=== PATIENT | male | born 1985 | race Caucasian/White ===

== ENCOUNTER → 2021-08-04 09:35 | Outpatient (BNVA) | payer MEDICAID, SELFPAY | PROVIDERS: PCP Internal Medicine; Visit Provider Surgery | DX: D17.9 Benign lipomatous neoplasm, unspecified (principal) | CPT/HCPCS: 99202 ==

== ENCOUNTER 2021-09-03 13:08 | Outpatient (REF) | payer MEDICAID, SELFPAY | END 2021-09-03 13:09 | disposition home or self-care (01) | LOC: HO.LAB 13:08 | PROVIDERS: PCP Internal Medicine; Visit Provider Surgery | DX: D17.24 Benign lipomatous neoplasm of skin and subcutaneous tissue of left leg (principal); D17.23 Benign lipomatous neoplasm of skin and subcutaneous tissue of right leg | CPT/HCPCS: 11402; 11403; 11404; 88304 ==

== ENCOUNTER 2023-12-08 12:05 | Outpatient (REF) | payer MEDICAID, SELFPAY ==
--- NOTE | ~2023-12-08 | XR_ITS ---
EXAMINATION: XR CHEST CLINICAL INFORMATION: Chest pain with deep breathing COMPARISON: 07/03/2016 TECHNIQUE: 2 views of the chest were obtained. FINDINGS: Lungs are grossly clear. Heart size normal with normal caliber and юлия vessels. There is minimal scarring related to the right minor fissure and some strand-like atelectasis at the left base in the retrocardiac space. These findings are new from the 2017 study but do appear likely chronic and not reflective of an active disease process. If symptoms warrant however, CT of the chest would be advised. XR/XR chest 2V IMPRESSION: Probable chronic changes in the right mid to lower lung and left base. No active disease. If clinically warranted, however, CT may be helpful for more sensitive evaluation. Electronically signed by: Hardeep Haines MD 12/08/2023 02:18 PM EDT
== END 2023-12-08 12:06 | disposition home or self-care (01) ==
LOC: HO.HHCX 12:05
PROVIDERS: Visit Provider Internal Medicine
DX: R07.1 Chest pain on breathing (principal)
CPT/HCPCS: 71046

== ENCOUNTER → 2023-12-29 10:01 | Outpatient (REF) | payer OTHER, SELFPAY ==
--- NOTE | 2023-12-29 10:04 | CA_ITS ---
Transthoracic Echocardiogram Patient (Last, First, Middle): Noel Rubio S Gender: Male Date of : 1985 Age: 38 Procedure Date: 12/29/2023 Procedure Type: Transthoracic Echocardiogram Location: OP Height: 172.72 cm Weight: 82.56 kg BSA: 1.96 m2 Heart Rate: bpm BP: 116 / 80 mmHg Claim Clerk: BJ Referring MD: Grabiel Hardwick MD Exterior Door Installer: Neno Valdez MD Symptoms: R07.1 CP ON BREATHING I10 HTN Study Quality: Fair ECG Rhythm: Sinus Conclusions: - Essentially normal study Findings Left Ventricle Normal left ventricular size, thickness, and systolic function. The visually estimated ejection fraction is between 65-70%. Spectral Doppler is indicative of a normal filling pattern. Right Ventricle Normal right ventricular cavity size and systolic function. Atria The left atrium is normal in size. There is no evidence of interatrial shunt. The right atrium was not well visualized. Aortic Valve The aortic valve structure and function is likely normal. There is no aortic valve stenosis. There is no aortic valve regurgitation. Mitral Valve Likely normal mitral valve structure and function. There is no mitral valve regurgitation. There is no mitral valve stenosis. Pulmonic Valve The pulmonic valve was not well visualized. Tricuspid Valve Likely normal tricuspid valve structure and function. Tricuspid regurgitation envelope is inadequate for calculation of right ventricular systolic pressure. Normal right atrial pressure. Great Vessels All visible segments of the aorta are normal in size. The pulmonary artery was not well visualized. Venous The inferior vena cava is normal in size and collapses greater than 50% with inspiration. Pericardium/Pleural There is no evidence of pericardial effusion. Prior Study Comparison No prior study available for comparison. Measurements 2D Linear Measurements IVSd: 0.99 0.6-0.9/0.6-1.0 cm LVIDd: 3.91 3.9-5.3/4.2-5.9 cm LVIDd Index: 1.99 2.4-3.2/2.2-3.1 cm/m2 LVIDs: 2.07 2.0-3.6 cm LVPWd: 0.76 0.7-1.1 cm LA Diam: 3.40 2.7-3.8/3.0-4.0 cm LAIDs Index: 1.73 1.5-2.3 cm/m2 LV Mass: 126.91 67-162/88-224 g LV Mass Index: 64.75 43-95/49-115 g/m2 LVOT Diam: 2.10 3.0+(-)1.3 cm 2D Systolic Function EF 4C: 67.40 >55% EF 2C: 71.80 >55% EF BiP: 69.00 >55% Mitral Valve MV Pk E: 1.02 MV PK A: 0.52 MV Decel Time: 164.00 E/A: 2.00 E'Lateral: 14.40 E'Medial: 9.79 E/E' Med: 10.40 E/E' Lat: 7.10 PHT: 48.00 MVA PHT: 4.58 Decel Cannon: 6.19 Aortic Valve AoV Pk Antoine: 1.05 AoV Mn Antoine: 0.77 AoV VTI: 0.20 AoV Pk Grad: 4.00 Aov Mn Grad: 3.00 FUNMI Cont.VTI: 3.51 LVOT LVOT Pk Antoine: 0.84 LVOT Mn Antoine: 0.54 LVOT VTI: 0.20 LVOT Pk Grad: 3.00 LVOT Mn Grad: 1.00 LVOT Diam: 2.10 LVOT Area: 3.46 Diastolic Function MV Pk E: 1.02 MV Pk A: 0.52 E/A: 2.00 E'Medial: 9.79 E/E' Med: 10.40 E' Laterial: 14.40 E/E' Lat: 7.10 Right Ventricle TAPSE (mm): 21.30 TVS' Antoine: 10.40 Tricuspid Valve RA Press: 3.00 Great Vessels Aorta Sinus of Valsalva: 3.12 2.0-3.5 cm Ao Asc: 2.70 2.1-3.4 cm Ao Arch: 2.50 Updated in Other Vendor System with Status of Final Neno Valdez MD electronically signed on 12/29/2023 5:23:56 PM with status of Final
== END ==
LOC: HO.CARD 10:01
PROVIDERS: PCP Internal Medicine; Visit Provider Internal Medicine
DX: R07.1 Chest pain on breathing (principal); I10 Essential (primary) hypertension
CPT/HCPCS: 93306

== ENCOUNTER → 2023-12-29 10:04 | Outpatient (BNV) | payer OTHER, SELFPAY | PROVIDERS: PCP Internal Medicine; Visit Provider Internal Medicine Cardiovascular Disease | DX: R07.1 Chest pain on breathing (principal) | CPT/HCPCS: 93306 ==

== ENCOUNTER 2024-12-13 10:56 | Outpatient (REF) | payer OTHER, SELFPAY ==
--- OUTSIDE RECORDS SUMMARY | 2024-12-08 09:30 | XMS_ITS | Encounter Summary ---
Author Organization [employer] Address [address] [facility] [address] [place] [address] Care Team Providers Care Poker Dealer Name Role Phone Grabiel Hardwick MD Primary Care Provider [phone] Reason for Visit * Reason Comments Immunizations Encounter Details Date Type Department Care Team (Latest Contact Info) Description 12/08/2024 10:30 AM EDT Clinical Support [facility] [address] [place] [address] Jinny Moore RN Encounter for immunization Social History Tobacco Use Types Packs/Day Years Used Date Smoking Tobacco: Never Passive Smoke Exposure: Never Smokeless Tobacco: Never Alcohol Use Standard Drinks/Week Comments Never 0 (1 standard drink = 0.6 oz pur e alcohol) Depression Answer Date Recorded Patient Health Questionnaire-9 Score 1 05/25/2024 Patient Health Questionnaire-9 Score 1 05/25/2024 Last PHQ-9: Questionnaire Data Not on file 0 05/25/2024 Housing Stability Answer Date Recorded What is your housing situation today? I have miranda jason 05/17/[address] you li ve. Do you have problems with any of the following? None of the above 05/17/2024 Food Insecurity Answer Date Recorded Within the past 12 months, y ou worried that your food would run out before you got money to buy more: Never True 05/17/2024 Within the past 12 months,th e food you bought just didn't last and you didn't have enough money to get more: Never True 10/2024 Transportation Answer Date Recorded In the past 12 months, has l ack of transportation kept you from medical appts, meetings, work or from getting things needed for daily living? No 05/17/2024 Utilities Answer Date Recorded In the past 12 months, has t he electric, gas, oil or water company threatened to shut off services in your home? No 05/17/2024 Depression Answer Date Recorded Patient Health Questionnaire-2 Score 0 05/25/2024 Internet Access Answer Date Recorded Internet Access Q1 Yes 05/17/2024 Internet Access Q2 Not on file 05/17/2024 Sex and Gender Information Value Date Recorded Sex Assigned at Male 12/08/2021 10:19 AM EDT Legal Sex Male 10:19 AM EDT Gender Identity Male 12/08/2021 10:19 AM EDT Sexual Orientation Straight 09/07/2024 7: 56 AM EDT documented as of this encounter Progress Notes * Jinny Moore RN - 12/08/2024 10:30 AM EDT S: Noel Rubio is here for Immunizations Preferred language for medical information: Azeri Noel Rubio denies feeling sick today. Upon review of the electronic health record there is no contraindication for receiving the Hepatitis B vaccine today. Penicillin g, Penicillin v, and Penicillins O: Hepatitis B 0.5ml, administered to left deltoid. Injection was tolerated well. No adverse reaction noted. A copy of the VIS informational sheet was provided and Noel Rubio was advised to wait 15minutes post vaccination for monitoring of adverse reactions. Immunization History Administered Date(s) Administered Hep B, adult 11/07/2024, 12/08/2024 Influenza, IIV3, injectable 12/13/2013 Influenza, seasonal, injectable, preservative free 11/07/2024 Pfizer Covid-19 Vaccine 12+ 08/29/2020, 09/19/2020 TD (adult), 2 Lf tetanus toxoid, preservative free, adsorbed 06/26/2021 Tdap 06/02/2011 A: Encounter for Immunization P: Noel Rubio to follow up 02/23/25 for final Hepatitis B (Energix B) vaccination. Jinny Moore RN documented in this encounter Plan of Treatment Upcoming Encounters Date Type Department Care Team (Late st Contact Info) Description 12/26/2024 10:30 AM EST Office Visit [facility] [address] [facility] [place] [address] Jose Walter, DMD [address] [place] [address] 02/23/2025 10:45 AM EST Immunization [facility] [address] [place] [address] documented as of this encounter Visit Diagnoses Diagnosis Encounter for immunization documented in this encounter Additional Health Concerns Assessment Noted Time PHQ-9 Depression Total Score: 1 05/26/19 25 11:40 AM EDT documented as of this encounter Care Teams Poker Dealer Relationship Specialty Start Date End Date Grabiel Hardwick MD [address] [place] [address] PCP - General Internal Medicine 02/15/13 documented as of this encounter
--- OUTSIDE RECORDS SUMMARY | 2024-12-13 10:00 | XMS_ITS | Encounter Summary ---
Author Organization [facility] [employer] Address [address] [facility] [address] [place] [address] Care Team Providers Care Lens Blocker Name Role Phone Grabiel Hardwick MD Primary Care Provider [phone] Reason for Visit * Reason Comments Annual Exam Encounter Details Date Type Department Care Team ([facility] st Contact Info) Description 12/13/2024 10:00 AM EST Office Visit [facility] [address] [place], [place] [phone] Grabiel Hardwick MD [address] [place] [address] Annual physical exam (Primary Dx); Primary hypertension Social History Tobacco Use Types Packs/Day Years Used Date Smoking Tobacco: Never Passive Smoke Exposure: Never Smokeless Tobacco: Never Alcohol Use Standard Drinks/Week Comments Never 0 (1 standard drink = 0.6 oz pur e alcohol) Depression Answer Date Recorded Patient Health Questionnaire-9 Score 1 12/13/2024 Patient Health Questionnaire-9 Score 1 12/13/2024 Last PHQ-9: Questionnaire Data Not on file 1 02/13/2024 Housing Stability Answer Date Recorded What is [...] Date Recorded Patient Health Questionnaire-2 Score 0 12/13/2024 Internet Access Answer Date Recorded Internet Access Q1 Yes 05/17/2024 Internet Access Q2 Not on file 05/17/2024 Sex and Gender Information Value Date Recorded Sex Assigned at Male 12/08/2021 10:19 AM EDT Legal Sex Male 10:19 AM EDT Gender Identity Male 12/08/2021 10:19 AM EDT Sexual Orientation Straight 09/07/2024 7: 56 AM EDT documented as of this encounter Last Filed Vital Signs Vital Sign Reading Time Taken Comments Blood Pressure 116/80 12/13/2024 10:20 AM EST Pulse 72 12/13/2024 10:20 AM EST Temperature 36.7 C (98 F) 12/13/2024 10:20 AM EST Respiratory Rate 16 12/13/2024 10:20 AM EST Oxygen Saturation - - Inhaled Oxygen Concentration - - Weight 76.2 kg (168 lb) 12/13/2024 10:20 AM EST Height 169.5 cm (5' 6.75 ) 12/13/2024 10:[address] Body Mass Index 26.51 12/13/2024 10:20 AM EST documented in this encounter Functional Status * Over the past 2 weeks, how often have you been bothered by any of the following problems? Question Answer Date of Assessment Author Patient Health Questionnaire -2 Score 0 12/13/2024 10:37 AM EST Joshua Loredo MA * Little interest or pleasure in doing things Answer Date of Assessment Author Not at all 12/13/2024 10:37 AM EST Bella Suárez MA * Feeling down, depressed, or hopeless Answer Date of Assessment Author Not at all 12/13/2024 10:37 AM EST Blela Suárez MA * Trouble falling or staying asleep, or sleeping too much Answer Date of Assessment Author Several days 12/13/2024 10:37 AM Bella Hickman MA * Feeling tired or having little energy Answer Date of Assessment Author Not at all 12/13/2024 10:37 AM Bella Hickman MA * Poor appetite or overeating Answer Date of Assessment Author Not at all 12/13/2024 10:37 AM Bella Hickman MA * Feeling bad about yourself - or that you are a failure or have let yourself or your family down Answer Date of Assessment Author Not at all 12/13/2024 10:37 AM Bella Hickman MA * Trouble concentrating on things, such as reading the newspaper or watching television Answer Date of Assessment Author Not at all 12/13/2024 10:37 AM Bella Hickman MA * Moving or speaking so slowly that other people could have noticed? Or the opposite - being so fidgety or restless that you have been moving around a lot more than usual. Answer Date of Assessment Author Not at all 12/13/2024 10:37 AM Bella Hickman MA * Thoughts that you would be better off or hurting yourself in some way Answer Date of Assessment Author Not at all 12/13/2024 10:37 AM Bella Hickman MA * Patient Health Questionnaire-9 Score Answer Date of Assessment Author 1 12/13/2024 10:37 AM Bella Hickman MA * How difficult have these problems made it for you to do your work, take care of things at home, or get along with other people? Answer Date of Assessment Author Not difficult at all 12/13/2024 10:37 AM Bella Smith MA documented as of this encounter Progress Notes * Grabiel Hardwick MD - 12/13/2024 10:00 AM EST SUBJECTIVE Noel Rubio is a 39 y.o. male who presents for Annual Exam. Noel Rubio, 39-year-old male - Chronic difficulty falling asleep, ongoing for several years, often due to thoughts about the next day and occasional interruptions by children - Denies depression - Stable blood pressure, but reports it has been slightly elevated in the past few weeks - Missed gym sessions and experienced illness for 1 week in the past two weeks, followed by recovery - Denies blood in stool - Normal bowel movements Problem List[1] Allergies[2] Medications Ordered Prior to Encounter[3] Review of Systems Constitutional: Negative for activity change, appetite change, chills and diaphoresis. HENT: Negative for dental problem, drooling and ear discharge. Eyes: Negative for pain and itching. Respiratory: Negative for cough, choking and chest tightness. Cardiovascular: Negative for palpitations and leg swelling. Gastrointestinal: Negative for abdominal pain, anal bleeding and blood in stool. Endocrine: Negative for cold intolerance and heat intolerance. Genitourinary: Negative for flank pain, frequency and genital sores. Musculoskeletal: Negative for back pain. Neurological: Negative for light-headedness, numbness and headaches. Psychiatric/Behavioral: Negative for agitation, confusion and decreased concentration. OBJECTIVE Vitals: 12/13/24 1020 BP: 116/80 BP Location: Left arm Patient Position: Sitting BP Cuff Size: Adult Pulse: 72 Resp: 16 Temp: 98 ??F (36.7 ??C) TempSrc: Temporal Weight: 168 lb (76.2 kg) Height: 5' 6.75 (1.695 m) Physical Exam Constitutional: General: He is not in acute distress. Appearance: Normal appearance. He is obese. He is not ill-appearing, toxic- appearing or diaphoretic. HENT: Head: Normocephalic. Right Ear: Tympanic membrane normal. Left Ear: Tympanic membrane normal. Nose: Nose normal. Eyes: General: No scleral icterus. Right eye: No discharge. Left eye: No discharge. Pupils: Pupils are equal, round, and reactive to light. Cardiovascular: Rate and Rhythm: Normal rate and regular rhythm. Heart sounds: No murmur heard. No friction rub. No gallop. Pulmonary: Effort: Pulmonary effort is normal. No respiratory distress. Breath sounds: Normal breath sounds. No stridor. No wheezing, rhonchi or rales. Chest: Chest wall: No tenderness. Abdominal: General: Abdomen is flat. There is no distension. Palpations: Abdomen is soft. There is no mass. Tenderness: There is no abdominal tenderness. There is no right CVA tenderness, guarding or rebound. Hernia: No hernia is present. Musculoskeletal: General: Normal range of motion. Cervical back: Normal range of motion. Skin: General: Skin is warm. Neurological: General: No focal deficit present. Mental Status: He is alert. Psychiatric: Mood and Affect: Mood normal. Behavior: Behavior normal. Assessment/Plan Assessment/Plan Diagnoses and all orders for this visit: Annual physical exam Comments: Normal exam Pt is to maintain a healthy and balanced diet. Orders: - CBC auto differential; Future - Comprehensive Metabolic Panel; Future - Lipid Panel, Standard; Future - TSH with Reflex to Free T4; Future Primary hypertension - CBC auto differential; Future - Comprehensive Metabolic Panel; Future - Lipid Panel, Standard; Future - TSH with Reflex to Free T4; Future Annual physical exam: - Routine annual physical exam performed. - Ordered blood work including cholesterol, liver function, kidney function, and blood glucose. Recommended follow-up in 6 months, at the beginning of spring. Primary hypertension: - Blood pressure remains controlled. - Monitor blood pressure. No changes to current management. This note was drafted using Ambient (AI) technology. The patient/patient's guardian has been informed and has consented to the use of this technology: Yes [1] Patient Active Problem List Diagnosis Primary hypertension Abnormal auditory perception Acute recurrent streptococcal tonsillitis Pain in throat Tinnitus of left ear [2] Allergies Allergen Reactions Penicillin G Penicillin V Other reaction(s): unspecified Penicillins Hives, Unknown and Other Product containing penicillin (product) [3] Current Outpatient Medications on File Prior to Visit Medication Sig Dispense Refill chlorhexidine (Peridex) 0.12 % solution Swish 15 mL morning and night for 1 minute. Spit, do not swallow. Do not eat or drink for 30 minutes following use. (Patient not taking: Reported on 11/03/2024)473 mL 0 No current facility-administered medications on file prior to visit. documented in this encounter Plan of Treatment Upcoming Encounters Date Type Department Care Team (Late st Contact Info) Description 12/26/2024 10:30 AM EST Office Visit [facility] AD[facility] [address] [place] [address] Jose Walter, DMD [address] [place] [address] 02/23/2025 10:45 AM EST Immunization [facility] [address] [place] [address] Scheduled Orders Name Type Priority Associated Diagnoses Orde r Schedule CBC auto differential Lab Routine Annual physical exam Primary hypertension Expected: 12/13/2024 (Approximate), Expires: 12/13/2025 Comprehensive Metabolic Panel Lab Routine Annual physical exam Primary hypertension Expected: 12/13/2024 (Approximate), Expires: 12/13/2025 Lipid Panel, Standard Lab Routine Annual physical exam Primary hypertension Expected: 12/13/2024 (Approximate), Expires: 12/13/2025 TSH with Reflex to Free T4 Lab Routine Annual physical exam Primary hypertension Expected: 12/13/2024 (Approximate), Expires: 12/13/2025 documented as of this encounter Visit Diagnoses Diagnosis Annual physical exam- Primary Routine general medical examination at a health care facility Primary hypertension Unspecified essential hypertension documented in this encounter Additional Health Concerns Assessment Noted Time PHQ-9 Depression Total Score: 1 12/14/19 25 10:37 AM EST documented as of this encounter Care Teams Lens Blocker Relationship Specialty Start Date End Date Grabiel Hardwick MD [address] [place] [id number] PCP - General Internal Medicine 02/15/13 documented as of this encounter
--- OUTSIDE RECORDS SUMMARY | 2024-12-13 12:57 | XMS_ITS | Clinical Summary ---
Author Organization [employer] Address [address] [facility] [address] [place] [address] Care Team Providers Care Town Clerk Name Role Phone Grabiel Hardwick MD Primary Care Provider Allergies Active Allergy Reactions Criticality Noted Date Comments Penicillin G 02/16/2024 Penicillin V 02/27/2010 Other reaction(s): unspecified Penicillins Hives,Unknown,Other 02/16/2024 Product containing penicillin (product) Medications chlorhexidine (Peridex) 0.12 % solutionIndicat ions:Dental abscess Swish 15 mL morning and night for 1 minute. Spit, do not swallow. Do not eat or drink for 30 minutes following use. 473 mL Active Additional Information Patient not taking.Reported on 11/03/2024 Active Problems Problem Noted Date Diagnosed Date Primary hypertension 05/25/2024 Abnormal auditory perception 01/04/2024 Tinnitus of left ear 01/04/2024 Acute recurrent streptococcal tonsillitis 2017 Overview (11/06/2024): Acute recurrent streptococcal tonsillitis; Note: Date Diagnosed: 03/24/2017 9:25 AM (J03.01) Pain in throat 03/24/2017 Overview (11/06/2024): Pain in throat; Note: Date Diagnosed: 03/24/2017 9:25 AM (R07.0) Encounters Date Type Department Care Team Description 12/13/2024 10:00 AM EST Office Visit [facility] [address] [place] [address] Grabiel Hardwick MD Annual physical exam (Primary Dx); Primary hypertension 12/13/2024 Travel 12/12/2024 Telephone [facility] [address] [place] [address] Grabiel Hardwick MD Chart Prep 12/08/2024 10:30 AM EDT Clinical Support [facility] [address] [place] [address] Jinny Moore RN Encounter for immunization 12/08/2024 Travel 12/07/2024 Travel 12/05/2024 11:00 AM EDT Office Visit [facility] [address] [place] [address] Jose Walter DMD Full coverage crown needed for tooth at risk for fracture (Primary Dx) 12/05/[address] [facility] [address] [place] [address] Grabiel Hardwick MD Pre-visit Planning ([facility] screening was completed on 05/17/2024) 12/04/2024 Travel 11/09/2024 Travel 11/07/2024 9:15 AM EDT Office Visit [facility] [address] [place] [address] Grabiel Hardwick MD Primary hypertension (Primary Dx); Encounter for immunization 11/07/2024 Travel 11/06/2024 Telephone [facility] [address] [place] [address] Grabiel Hardwick MD chart prep 11/03/2024 10:00 AM EDT Office Visit [facility] [address] [place] [address] Jose Walter DMD Secondary dental caries associated with failed or defective dental scientologist (Primary Dx); Full coverage crown needed for tooth at risk for fracture 11/02/2024 Travel 10/19/2024 8:00 AM EDT Office Visit [facility] [address] [place] [address] Jose Walter DMD Full coverage crown needed for tooth at risk for fracture (Primary Dx) 10/12/2024 Travel 10/05/2024 10:30 AM EDT Office Visit [facility] [address] [place] [address] Jose Walter DMD Full coverage crown needed for tooth at risk for fracture (Primary Dx); Secondary dental caries associated with failed or defective dental scientologist 10/04/2024 Travel 10/02/2024 9:00 AM EDT Office Visit [facility] [address] [place] [address] Jose Walter DMD Dental caries (Primary Dx) 09/25/2024 Travel 09/20/2024 9:00 AM EDT Office Visit [facility] [address] [place] [address] Kenroy Robison DDS 09/17/2024 Travel 09/14/2024 10:30 AM EDT Office Visit [facility] [address] [place] [address] Kenroy Robison DDS from Last 3 Months Immunizations Immunization Administration Dates Next Due Hep B, adult 12/08/2024,11/07/2024 Influenza, IIV3, injectable 12/13/2013 Influenza, seasonal, injectable, preservative fr ee 11/07/2024 TD (adult), 2 Lf tetanus tox oid, preservative free, adsorbed 06/26/2021 Tdap 06/02/2011 Social History Tobacco Use Types Packs/Day Years Used Date Smoking Tobacco: Never Passive Smoke Exposure: Never Smokeless Tobacco: Never Tobacco Cessation:Counseling Given: Not Answered Alcohol Use Standard Drinks/Week Comments Never 0 [...] Orientation Straight 09/07/2024 7: 56 AM EDT Last Filed Vital Signs Vital Sign Reading Time Taken Comments Blood Pressure 116/80 12/13/2024 10:20 AM EST Pulse 72 12/13/2024 10:20 AM EST Temperature 36.7 C (98 F) 12/13/2024 10:20 AM EST Respiratory Rate 16 12/13/2024 10:20 AM EST Oxygen Saturation 98% 11/07/2024 9:12 AM EDT Inhaled Oxygen Concentration - - Weight 76.2 kg (168 lb) 12/13/2024 10:20 AM EST Height 169.5 cm (5' 6.75 ) 12/13/2024 10:[address] Body Mass Index 26.51 12/13/2024 10:20 AM EST Plan of Treatment Upcoming Encounters Date Type Department Care Team (Late st Contact Info) Description 12/26/2024 10:30 AM EST Office Visit [facility] [address] [place] [address] Jose Walter DMD [address] [place] [address] 02/23/2025 10:45 AM EST Immunization [facility] [address] [place] [address] Health Maintenance Due Date Last Done Comments Family Planning (PISQ) 11/18/1999 HPV Vaccines (1 - Male 3-dose series) 11/18/1999 Dental Oral Exam 01/26/2025 07/26/2024, 09/2018, 10/25/2017, Additional history exists Dental Prophylaxis 01/26/2025 07/26/2024, 0 08/10/2018, 10/06/2017, Additional history exists Dental X-Ray: Bitewings 04/15/2025 04/15/19, 10/25/2017, 03/06/2016 Hepatitis B Vaccines (3 of 3 - 19+ 3-dose series) 05/07/2025 12/08/2024, 11/07/2024 SDOH Screening 05/17/2025 05/17/2024 Alcohol/Substance Use Screening 05/25/2025 05/25/2024 Disability Screening 11/02/2025 11/02/2024 COVID-19 Vaccine (3 - season) 2025 09/19/2020, 08/29/2020 Postponed from 10/09/2024 (Patient Refused) Depression Screening 12/13/2025 12/13/2024, 12/14/19 Tobacco Screening 12/13/2025 12/13/2024 Lipid Panel 06/27/2026 06/27/2021 Dental X-Ray: Full Mouth 04/16/2027 025, 03/06/2016, 01/24/2008 DTaP/Tdap/Td Vaccines (3 - Td or Tdap) 06/27/2031 06/26/2021, 06/02/2011 Zoster Vaccines (1 of 2) 2034 RSV Patients and Patients Aged 60 years or older (1 - 1-dose 75+ series) 11/18/2059 HIV Screening Completed 06/27/2021 Hepatitis C Screening Completed 06/27/2021 Influenza Vaccine Completed 11/07/2024, 12/13/2013 HIB Vaccines Aged Out No longer eligi ble based on patient's age to complete this topic Hepatitis A Vaccines Aged Out No long er eligible based on patient's age to complete this topic IPV Vaccines Aged Out No longer eligi ble based on patient's age to complete this topic Meningococcal B Vaccine Aged Out No l onger eligible based on patient's age to complete this topic Meningococcal Vaccine Aged Out No mannie harshil eligible based on patient's age to complete this topic Pneumococcal Vaccine: Pediatrics (0 to 5 Years) and At-Risk Patients (6 to 49) Years Aged Out No longer eligible based on patient's age to complete this topic RSV under 20 months Aged Out No longe r eligible based on patient's age to complete this topic Rotavirus Vaccines Aged Out No longer eligible based on patient's age to complete this topic Procedures Procedure Name Priority Date/Time Associated Diagnosis Comments CASE PRESENTATION, DETAILED AND EXTENSIVE TREATMENT PLANNING Routine 12/05/2024 11:00 AM EDT Full coverage crown needed for tooth at risk for fracture 18 CROWN - PORCELAIN FUSED TO PREDOMINANTLY BASE METAL Routine 12/05/2024 11:00 AM EDT Full coverage crown needed for tooth at risk for fracture CASE PRESENTATION, DETAILED AND EXTENSIVE TREATMENT PLANNING Routine 11/03/2024 10:00 AM EDT Secondary dental caries associated with failed or defective dental scientologist Full coverage crown needed for tooth at risk for fracture 18 CORE BUILDUP, INCL ANY PINS WHEN REQ Routine 11/03/2024 10:00 AM EDT Secondary dental caries associated with failed or defective dental scientologist Full coverage crown needed for tooth at risk for fracture CROWN PREP Routine 11/03/2024 10:00 AM EDT Secondary dental caries associated with failed or defective dental scientologist Full coverage crown needed for tooth at risk for fracture CASE PRESENTATION, DETAILED AND EXTENSIVE TREATMENT PLANNING Routine 10/19/2024 8:00 AM EDT Full coverage crown needed for tooth at risk for fracture 4 CROWN - PORCELAIN/CERAMIC Routine 10/19/2024 8:00 AM EDT Full coverage crown needed for tooth at risk for fracture CASE PRESENTATION, DETAILED AND EXTENSIVE TREATMENT PLANNING Routine 10/05/2024 10:30 AM EDT Full coverage crown needed for tooth at risk for fracture Secondary dental caries associated with failed or defective dental scientologist 4 CROWN PREP Routine 10/05/2024 10:30 AM EDT Full coverage crown needed for tooth at risk for fracture Secondary dental caries associated with failed or defective dental scientologist 4 CORE BUILDUP, INCL ANY PINS WHEN REQ Routine 10/05/2024 10:30 AM EDT Full coverage crown needed for tooth at risk for fracture Secondary dental caries associated with failed or defective dental scientologist CASE PRESENTATION, DETAILED AND EXTENSIVE TREATMENT PLANNING Routine 10/02/2024 9:00 AM EDT Dental caries 6 DF RESIN-BASED COMPOSITE - 2 SURF, ANTERIOR Routine 10/02/2024 9:00 AM EDT Dental caries 8 MFL RESIN-BASED COMPOSITE - 3 SURF, ANTERIOR Routine 10/02/2024 9:00 AM EDT Dental caries UL PERIODONTAL SCALING AND ROOT PLANING - 1 TO 3 TEETH PER QUADRANT Routine 09/20/2024 9:00 AM EDT LL PERIODONTAL SCALING AND ROOT PLANING - 4 OR MORE TEETH PER QUADRANT Routine 09/20/2024 9:00 AM EDT LR PERIODONTAL SCALING AND ROOT PLANING - 4 OR MORE TEETH PER QUADRANT Routine 09/14/2024 10:30 AM EDT UR PERIODONTAL SCALING AND ROOT PLANING - 1 TO 3 TEETH PER QUADRANT Routine 09/14/2024 10:30 AM EDT PROPHYLAXIS - ADULT Routine 07/26/2024 9 :30 AM EDT Dental caries Secondary dental caries associated with failed or defective dental scientologist Periodontal disease PERIODIC ORAL EVALUATION - ESTABLISHED PATIENT Routine 07/26/2024 9:30 AM EDT Dental caries Secondary dental caries associated with failed or defective dental scientologist Periodontal disease INTRAORAL - COMPLETE SERIES OF RADIOGRAPHIC IMAGES Routine 04/14/2024 1:00 PM EST Dental abscess ZZZ HISTORICAL HEPATITIS C AB W/REFL TO HCV RNA, QN, PCR Routine 06/27/2021 9:17 AM EDT HIV 1/2 ANTIGEN/ANTIBODY, FOURTH GENERATION W/RFL Routine 06/27/2021 9:17 AM EDT LIPID PANEL, STANDARD Routine 06/27/2021 9:17 AM EDT from Last 3 Months or Most Recently Relevant to Health Maintenance Results * HEPATITIS C AB W/REFL TO HCV RNA, QN, PCR (06/27/2021 9:17 AM EDT) HEPATITIS C ANTIBODY NON-REACT FLORESITA NON-REACT FLORESITA [facility] INDEX 0.03 <1.00 [facility] Comment: HCV antibody was non-reactive. There is no laboratory evidence of HCV infection. In most cases, no further action is required. However, if recent HCV exposure is suspected, a test for HCV RNA (test code 56669) is suggested. For additional information please refer to http://[employer]Field Agent/faq/OZT82q8 (This link is being provided for informational/ educational purposes only.) 06/27/2021 9:17 AM EDT Grabiel Hardwick MD HISTORICAL/NON ORDERABLE LA BS Final Result Performing Organization Address [facility] Co de Phone Number [facility] [address] * HIV 1/2 ANTIGEN/ANTIBODY,FOURTH GENERATION W/RFL (06/27/2021 9:17 AM EDT) Pathologist [facility] HIV-1/2 ANTIGEN AND ANTIBODIES, 4TH GENERATION W/ REFLEX NON-REACT FLORESITA NON-REACT FLORESITA [facility] Comment: HIV-1 antigen and HIV-1/HIV-2 antibodies were not detected. There is no laboratory evidence of HIV infection. PLEASE NOTE: This information has been disclosed to you from records whose confidentiality may be protected by state law. If your state requires such protection, then the state law prohibits you from making any further disclosure of the information without the specific written consent of the person to whom it pertains, or as otherwise permitted by law. A general authorization for the release of medical or other information is NOT sufficient for this purpose. For additional information please refer to http://[employer]Field Agent/faq/CCP030 (This link is being provided for informational/ educational purposes only.) The performance of this assay has not been clinically validated in patients less than 2 years old. 06/27/2021 9:17 AM EDT Grabiel Hardwick MD LAB BLOOD ORDERABLES Final Result Performing Organization Address [facility] Co de Phone Number [facility] [address] * (ABNORMAL) LIPID PANEL, STANDARD (06/27/2021 9:17 AM EDT) Pathologist [facility] Chol/HDLC Ratio 5.6(H) <5.0 (calc) [facility] Cholesterol, Total 214(H) <200 mg/dL [facility] HDL Cholesterol 38(L) > OR = 40 mg/dL [facility] LDL Cholesterol 129(H) mg/dL (calc) [facility] Comment: Reference range: <100 Desirable range <100 mg/dL for primary prevention; <70 mg/dL for patients with CHD or diabetic patients with > or = 2 CHD risk factors. LDL-C is now calculated using the Silvano-Doran calculation, which is a validated novel method providing better accuracy than the Friedewald equation in the estimation of LDL-C. Silvano SS et al. DAYO. 2013;310(19): 4228-9739 (http://education.Strolby.Ibetor/faq/ZIO973) Non-HDL Cholesterol 176(H) <130 mg/dL (calc) [facility] Comment: For patients with diabetes plus 1 major ASCVD risk factor, treating to a non-HDL-C goal of <100 mg/dL (LDL-C of <70 mg/dL) is considered a therapeutic option. Triglycerides 327(H) <150 mg/dL [facility] Comment: If a non-fasting specimen was collected, consider repeat triglyceride testing on a fasting specimen if clinically indicated. Nolan et al. J. of Clin. Lipidol. 2015;9:129-169. 06/27/2021 9:17 AM EDT us Grabiel Hardwick MD LAB BLOOD ORDERABLES Final Result [facility] [address] from Last 3 Months or Most Recently Relevant to Health Maintenance Insurance [facility] D[facility]AL - HSN PARTIAL (MEDICAID) [facility] Care Teams Town Clerk Relationship Specialty Start Date End Date Grabiel Hardwick MD [address] [place] [id number] PCP - General Internal Medicine 02/15/13
--- OUTSIDE RECORDS SUMMARY | 2024-12-13 12:57 | XMS_ITS | Encounter Summary ---
Author Organization [employer] Address [address] [facility] [address] [place] [address] Care Team Providers Care Cyber Security Analyst Name Role Phone Grabiel Hardwick MD Primary Care Provider [phone] Encounter Details Date Type Department Care Team (Latest Contact Info) Description 08/10/2018 Abstract [facility] CONVERSIONS Dental, Provider, DDS Social History Tobacco Use Types Packs/Day Years Used Date Smoking Tobacco: Never Assessed Sex and Gender Information Value Date Recorded Sex Assigned at Male 12/08/2021 10:19 AM EDT Legal Sex Male 10:19 AM EDT Gender Identity Male 12/08/2021 10:19 AM EDT Sexual Orientation Straight 09/07/2024 7: 56 AM EDT documented as of this encounter Plan of Treatment Upcoming Encounters Date Type Department Care Team (Late st Contact Info) Description 12/26/2024 10:30 AM EST Office Visit [facility] [address] [place] [address] Jose Walter DMD [address] [place] [address] 02/23/2025 10:45 AM EST Immunization [facility] [address] [place] [address] documented as of this encounter Visit Diagnoses Not on filedocumented in this encounter Care Teams Cyber Security Analyst Relationship Specialty Start Date End Date Grabiel Hardwick MD [address] [place] [address] PCP - General Internal Medicine 02/15/13 documented as of this encounter
--- OUTSIDE RECORDS SUMMARY | 2024-12-13 12:57 | XMS_ITS | Data Portability ---
Author Organization [place] [facility], [facility] Address [address] [address] Care Team Providers Care Drilling Superintendent Name Role Phone JOMAREUGENIEHAZEL KEYAELIAZARLEXI Primary Care Provider Assessment Encounter Date Assessment Date Assessment LastModified by Organization Details LastModified Time 01/04/2024 01/04/2024 38 year old male presents for evaluation of the ears. Otologic exam demonstrates TMs are intact with well-aerated middle ear spaces. Audiogram shows normal hearing with normal tympanometry bilaterally. I suspect he had acute otitis media with residual middle ear fluid, since cleared. Today we discussed the pathophysiology of tinnitus and the absence of consistently successful pharmacologic treatments for tinnitus. We discussed masking strategies to decrease awareness of the tinnitus, including using a white noise machine, music, or television.We discussed how exposure to loud noise can worsen tinnitus so I recommended hearing protection. We also discussed other ways to potentially help reduce awareness of tinnitus including avoidance of caffeine, salty meals and NSAIDs. He will follow up in our office as needed. The patient was also evaluated by Suraj Trevizo PA-C who functioned as scribe. [email or web address] Not available 01/05/2024 16:22:52 Plan of Treatment Reminders Order Date Submit Date Provider Last Modified By Organization Details Last Modified Time Details Appointments None record ed. Lab None record ed. Referral None record ed. Procedures None record ed. Surgeries None record ed. Imaging None record ed. Medication Orders None record ed. Patient TargetsNo targets recorded. Patient InstructionsNo instructions recorded. Reason for Referral None Reported. Results Created Date Observation Date Name Description Value Unit Range Abnormal Flag Note LastModifiedBy Organization Detail LastModifiedTime 01/04/20 24 audio gram No observ ation record ed. BARCODE Not Available 2023 14:41:42 Result Notes None recorded. Problems Name Problem SNOMED Code Status Onset Date Resolution Date Notes Provider Name and Address Organization Details Recorded Time Recurrent acute streptoco ccal tonsillit is 06812111622 515261 Active 2017 Acute recurrent streptoco ccal tonsillit is; Note: Date Diagnosed : 03/24/2017 9:25 AM (J03.01) Not Available [facility] 4 03:17:37 Pain in throat 262458111 Active 2017 Pain in throat; Note: Date Diagnosed : 03/24/2017 9:25 AM (R07.0) Not Available [facility] 4 03:17:37 Abnormal auditory perceptio n 52639446 Active 2023 LITZY DOWELL, [address],[place] [address], [place], [address] , [facility] 4 13:42:27 Tinnitus of left ear 92285971819 06 Active 2023 SURAJ TREVIZO PA-C [address] [place] [address],[place] [address], [place], [address] , [facility] 4 14:20:33 Problem Notes None recorded. Procedures Surgical History Date Name Laterality Status Provider Name and Address Organization Details Recorded Time 01/04/2024 Air & Speech Audio with Tymps - 89305, 54585 & 24620 completed LITZY DOWELL, [address],[place] [address], [place], [address], [facility] [place] 01/04/2024 13:41:17 Imaging Results None recorded. Procedure Notes None recorded. Medical Equipment None Reported. Allergies Allergen ID Allergen Name Allergen Category Reaction Reaction Severity Criticality Documentation Date Start Date Code Code System Note Provider Name and Address Organization Details Recorded Time 244026 Product containin g penicilli n (product) medicatio n other Not available Not available 06/22/2023 37950 8008 SNOMED React ion: unkno wn, unspe cifie d;; Not Available [facility] 4 01:10:50 Medications Name Sig Start Date Stop Date Status Note LastModified by Organization Details LastModified Time celecoxib 200 mg capsule TAKE 1 CAPSULE BY MOUTH TWICE A DAY active Not Available Not Available No t Available clindamyc in HCl 75 mg capsule 01/03 completed Medicati on ID: [id number] B rand Name: clindamy beth HCl Send Method: E-Prescr ibed Sub s Allowed: subs OK Medic ationGen ericName : clindamy beth HCl Not Available Not Available Not Available prednison e 20 mg tablet TAKE 2 TABLETS BY MOUTH EVERY DAY FOR 5 DAYS active Not Available Not Available No t Available PreviDent 0.2 % dental solution 01/03 completed Medicati on ID: [id number] B rand Name: PreviDen t Send Method: E-Prescr ibed Sub s Allowed: subs OK Medic ationGen ericName : PreviDen t Not Available Not Available Not Available lorazepam 0.5 mg tablet 01/03 completed Medicati on ID: [id number] B rand Name: lorazepa m Send Method: E-Prescr ibed Sub s Allowed: subs OK Speci al Instruct ion: Take half tablet as needed for vertigo. Medicat ionGener icName: lorazepa m Not Available Not Available Not Available benzonata te 100 mg capsule TAKE 1 CAPSULE BY MOUTH 3 TIMES A DAY NEEDED FOR COUGH FOR 7 DAYS active Not Available Not Available No t Available cefdinir 300 mg capsule TAKE 1 CAPSULE BY MOUTH EVERY 12 HOURS FOR 10 DAYS active Not Available Not Available No t Available Prilosec OTC 20 mg tablet,de layed release Take 1 tablet by mouth once a day one hour before meals 01/03 completed Medicati on ID: [id number] D uration Value: 30 Brand Name: Prilosec OTC Send Method: E-Prescr ibed Sub s Allowed: subs OK Medic ationGen ericName : Prilosec OTC Not Available Not Available Not Available Vitals None Recorded Social History None recorded. Functional Status None recorded. Mental Status None recorded. Family History Nothing Reported. Medical History Condition Response Hearing Loss Y Past Encounters Encounter ID Performer Location Encounter Start Date Encounter Closed Date Diagnosis/Indication Diagnosis SNOMED-CT Code Diagnosis ICD10 Code Diagnosis IMO Codes Diagnosis Note [id number] SCOTT ALEJANDRO MD [facility] [address] [address] 01/04/2024 13:24:52 01/04/2024 14:37:30 Abnormal auditory perception 94433126 H93.299 Right Ear:Normal hearing with excellent speech discrimina tion.Type A tympanogra m.Left Ear:Normal hearing with excellent speech discrimina tion.Type A tympanogra m. Ear examin ation normal 117861658 Z01.10 Tinnitus of left ear 022 9619572 106 H93.12 Health Concerns Section Related Observation LastModified by Organization Detai ls LastModified Time None Recorded Concern Status LastModified by Organization Details LastModified Time None Recorded Advance Directives Directive None Recorded Payers Insurance Date Sequence Insurance Name Policy Number Policy Bianchi Covered Member ID Bianchi Member ID Guarantor Name 12/14/2023 1 [facility] (MEDICARE REPLACEMENT/ ADVANTAGE - HMO) Noel Ramiro [id number] Noel Rubio 12/09/2023 1 [place] [facility] Noel Ramiro [id number] Noel Rubio 01/04/2024 1 [facility] (HMO) [id number] Rach A Ramiro [id number] Noel Rubio Notes Date Note Type Note Provider Name and Address Organization Details Recorded Time 01/04/2024 text/html ROS as noted in the HPI 38 year old male presents for evaluation of the ears. He reports having an upper respiratory infection in November and developed associated hearing loss in the left ear. He was treated at an emergency department on 11/22/23 with Cefdinir. His left ear continued to feel blocked for one month, and recently his hearing returned to normal. Endorses occasional left tinnitus and ear popping. Denies otalgia or otorrhea. Denies prior history of ear infections, ear surgeries, or allergic rhinitis. 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 Endorses Qtip use. SCOTT ALEJANDRO MD [address] [place] [address], [phone], [facility] - [facility] 01/05/2024 16:23:11
--- OUTSIDE RECORDS SUMMARY | 2024-12-13 12:57 | XMS_ITS | Data Portability ---
Author Organization [facility] [address] Address [address] [place] [address] Assessment No assessment recorded. Plan of Treatment Reminders Order Date Submit Date Provider Last Modified By Organization Details Last Modified Time Details Appointments None record ed. Lab None record ed. Referral None record ed. Procedures None record ed. Surgeries None record ed. Imaging None record ed. Medication Orders None record ed. Patient TargetsNo targets recorded. Patient Instructions Encounter Date Encounter Id Patient Instructions Last Modified By Organization Details Last Modified Time 09/21/2022 [id number] This physical does not replace the annual physical to be performed by your PCP. There may be additional screening tests that they will perform that we do not in the urgent care setting. Failure to follow up as recommended may result in significant adverse health consequences. If your symptoms worsen or you develop new symptoms that concern you, go to the emergency department for further evaluation. sheryl Not available 09/21/2022 10:28:49 Reason for Referral None Reported. Problems No Known Problems Procedures Surgical History Date Name Laterality Status Provider Name and Address Organization Details Recorded Time OC-DOT PHYSICAL completed SHERICE ALLEN - [facility] 09/21/2022 09:46:15 Imaging Results None recorded. Procedure Notes None recorded. Medical Equipment None Reported. Allergies Allergen ID Allergen Name Allergen Category Reaction Reaction Severity Criticality Documentation Date Start Date Code Code System Note Provider Name and Address Organization Details Recorded Time 986968 Product containin g penicilli n (product) medicatio n Not available Not available Not available 09/16/2022 [id number] ALEJANDRO Roland [facility] 13:27:15 Medications Not known to be on any medication Vitals Date Recorded Body height Body mass index (BMI) Body weight Oxygen saturation Oxygen saturation in Arterial blood by Pulse oximetry Heart rate Respiratory rate Systolic And Diastolic Provider Name and Address Organization Details Last Updated DateTime 3 172.72 cm 29.3 kg/m2 88532.3 3 g 98 % 98 % 69 /min 18 /min 125/82 mm[Hg] MARINA VILLANUEVA PA - [facility] 3 13:26:44 Social History None recorded. Functional Status None recorded. Mental Status None recorded. Family History Relationship Description Onset Age of this Age Resolved Age Notes LastModified by Organization Details LastModified Time Father No current problems or disability [email or web address] Not available 09/16 13:27:22 Mother No current problems or disability [email or web address] Not available 09/16 13:27:22 Medical History No medical history recorded. Immunizations Vaccine Type Date Status Note Provider Nam e and Address Organization Details Recorded Time COVID-19, mRNA, LNP-S, PF, 30 mcg/0.3 mL dose 1 completed MARINA VILLANUEVA null, PA - [facility] 09/16/2022 13:27:00 COVID-19, mRNA, LNP-S, PF, 30 mcg/0.3 mL dose 1 completed MARINA VILLANUEVA null, PA - [facility] 09/16/2022 13:27:00 Tdap 2 completed MARINA VILLANUEVA null, PA - [facility] 09/16/2022 13:27:00 Influenza, split virus, trivalent, preservative 4 completed MARINA VILLANUEVA null, PA - [facility] 09/16/2022 13:27:00 Td (adult), 2 Lf tetanus toxoid, preservative free, adsorbed 2 completed MARINA VILLANUEVA null, PA - [facility] 09/16/2022 13:27:00 Past Encounters Encounter ID Performer Location Encounter Start Date Encounter Closed Date Diagnosis/Indication Diagnosis SNOMED-CT Code Diagnosis ICD10 Code Diagnosis IMO Codes Diagnosis Note [id number] [facility] [facility] [address] [address] 05/27/2018 14:14:37 05/27/2018 14:53:16 [id number] [place] [address] 06/22/2020 09:20:48 06/22/2020 10:55:31 [id number] Darwin Salazar [place] [address] [place] [address] 09/16/2022 12:28:42 09/16/2022 14:00:53 History and physical examination, pre-employment 802748779 Z02.1 [id number] Mark [facility]raza [facility] [address] [place] [address] 09/21/2022 09:29:57 09/21/2022 10:30:48 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 933022493 Z02.4 Physical examination 588 0005 Z02.4 History an d physical examination, pre-employment [id number] Z02.1 Health Concerns Section Related Observation LastModified by Organization Detai ls LastModified Time None Recorded Concern Status LastModified by Organization Details LastModified Time None Recorded Advance Directives Directive None Recorded Payers Insurance Date Sequence Insurance Name Policy Number Policy Bianchi Covered Member ID Bianchi Member ID Guarantor Name 09/21/2022 OC-ESCREEN Noel Rubio 09/16/2022 1 [place] [facility] Noel Rubio [id number] Noel Rubio Notes Date Note Type Note Provider Name and Address Organization Details Recorded Time 09/21/2022 text/html PhysicalReported by Patient Mark Pedraza NP [address] [place], [address], [place] - [facility] 09/21/2022 10:29:15
--- OUTSIDE RECORDS SUMMARY | 2024-12-13 12:57 | XMS_ITS | Encounter Summary ---
Author Organization [employer] Address [address] [facility] [address] [place] [address] Care Team Providers Care Retail Stock Clerk Name Role Phone Grabiel Hardwick MD Primary Care Provider [phone] Encounter Details Date Type Department Care Team (Latest Contact Info) Description 12/08/2024 Travel Social History Tobacco Use Types Packs/Day Years [...] Description 12/26/2024 10:30 AM EST Office Visit [facility] ADULT [facility] [address] [place] [address] Jose Walter, DMD [address] [place] [address] 02/23/2025 10:45 AM EST Immunization [facility] [address] [place] [address] documented as of this encounter Visit Diagnoses Not on filedocumented in this encounter Additional Health Concerns Assessment Noted Time PHQ-9 Depression Total Score: 1 05/26/19 25 11:40 AM EDT documented as of this encounter Care Teams Retail Stock Clerk Relationship Specialty Start Date End Date Grabiel Hardwick MD [address] [place] [address] PCP - General Internal Medicine 02/15/13 documented as of this encounter
--- OUTSIDE RECORDS SUMMARY | 2024-12-13 12:58 | XMS_ITS | Encounter Summary ---
Author Organization [employer] Address [address] [facility] [address] [place] [address] Care Team Providers Care Water Quality Assistant Name Role Phone Grabiel Hardwick MD Primary Care Provider [phone] Encounter Details Date Type Department Care Team (Latest Contact Info) Description 12/13/2024 Travel Social History Tobacco Use Types Packs/Day [...] AM EDT documented as of this encounter Functional Status * Over the past 2 weeks, how often have you been bothered by any of the following problems? Question Answer Date of Assessment Author Patient Health Questionnaire -2 Score 0 12/13/2024 10:37 AM Joshua Rob MA * Little interest or pleasure in doing things Answer Date of Assessment Author Not at all 12/13/2024 10:37 AM Bella Hickman MA * Feeling down, depressed, or hopeless Answer Date of Assessment Author Not at all 12/13/2024 10:37 AM Bella Hickman MA * Trouble falling or staying asleep, [...] Not difficult at all 12/13/2024 10:37 AM EST Bella Doll MA documented as of this encounter Plan of Treatment Upcoming Encounters Date Type Department Care Team (Late st Contact Info) Description 12/26/2024 10:30 AM EST Office Visit [facility] ADULT DENTAL [address] [place] [address] Jose Walter, DMD [address] [place] [address] 02/23/2025 10:45 AM EST Immunization [facility] [address] [place] [address] documented as of this encounter Visit Diagnoses Not on filedocumented in this encounter Additional Health Concerns Assessment Noted Time PHQ-9 Depression Total Score: 1 12/14/19 25 10:37 AM EST documented as of this encounter Care Teams Water Quality Assistant Relationship Specialty Start Date End Date Grabiel Hardwick MD [address] [place] [address] PCP - General Internal Medicine 02/15/13 documented as of this encounter
--- OUTSIDE RECORDS SUMMARY | 2024-12-13 12:58 | XMS_ITS | Encounter Summary ---
Author Organization [employer] Address [address] [place] [address] Care Team Providers Care Websphere Architect Name Role Phone Grabiel Hardwick MD Primary Care Provider [phone] Reason for Visit * Reason Onset Date Comments Chart Prep 12/12/2024 Encounter Details Date Type Department Care Team ([facility] st Contact Info) Description 12/12/2024 Telephone [facility] [address] [place], [place] [phone] Grabiel Hardwick MD [address] [place] [address] Chart Prep Social History Tobacco Use Types Packs/Day Years [...] AM EDT documented as of this encounter Miscellaneous Notes * Telephone Encounter - Aye Cerrato [place] - 12/12/2024 9:32 AM EST Chart Prep Labs: not applicable Images: done Referrals: complete Vaccines due: Covid and HPV Screenings: PISQ Overdue care gaps: Not applicable documented in this encounter Plan of Treatment Upcoming Encounters Date Type Department Care Team (Late st Contact Info) Description 12/26/2024 10:30 AM EST Office Visit [facility] AD[facility] [address] [place] [address] Jose Walter DMD [address] [place] [address] 02/23/2025 10:45 AM EST Immunization [facility] [address] [place] [address] documented as of this encounter Visit Diagnoses Not on filedocumented in this encounter Additional Health Concerns Assessment Noted Time PHQ-9 Depression Total Score: 1 05/26/19 25 11:40 AM EDT documented as of this encounter Care Teams Websphere Architect Relationship Specialty Start Date End Date Grabiel Hardwick MD [address] [place] [address] PCP - General Internal Medicine 02/15/13 documented as of this encounter
[2024-12-13 14:15] LABS: MANUAL DIFF FLAG NO
[2024-12-13 14:19] LABS: Hematocrit 45.6 % (42.0-52.0); Hemoglobin 15.0 g/dl (14.0-18.0); Imm Gran Abs Auto 0.03 X10*3/uL (0.00-0.03); Imm Gran Pct Auto 0.4 % (0.0-0.4); Lymphocytes Absolute Auto 2.1 X10*3/uL (1.2-4.9); Mean Corpuscular HGB Conc 32.9 g/dl (31.0-36.0); Mean Corpuscular Hemoglobin 27.7 pg (27.0-33.0); Mean Corpuscular Volume 84.3 fL (80.0-98.0); NRBC Abs Auto 0.000 X10*3/uL (0.0-0.012); NRBC Pct Auto 0.0 /100WBC (0.0-0.2); Platelet Count 294 X10*3/uL (160-400); Red Blood Count 5.41 X10*6/uL (4.60-5.80); White Blood Count 6.9 X10*3/uL (4.8-10.8)
[2024-12-13 14:41] LABS: Alanine Aminotransferase 23 U/L (0-40); Albumin Level 4.6 g/dL (3.5-5.0); Alkaline Phosphatase 71 U/L (39-117); Anion Gap 12 (12-20); Aspartate Amino Transferase 29 U/L (5-37); Blood Urea Nitrogen 18 mg/dL (9-16); Calcium 9.8 mg/dL (8.4-10.2); Carbon Dioxide 27 mmol/L (22-29); Chloride 106 mmol/L (96-108); Cholesterol 226 mg/dL (<200); Estimated Glomerular Filt Rate > 60; HDL Cholesterol 46 mg/dL (>40); Potassium 4.2 mmol/L (3.3-5.1); Sodium 141 mmol/L (135-145); Total Protein 7.2 g/dL (6.5-8.0); Triglycerides 227 mg/dL (<150)
== END 2024-12-13 10:57 | disposition home or self-care (01) ==
LOC: HO.CHCLDS 10:56
PROVIDERS: Visit Provider Internal Medicine
DX: Z00.00 Encounter for general adult medical examination without abnormal findings (principal); I10 Essential (primary) hypertension
CPT/HCPCS: 36415; 80053; 80061; 84443; 85025